=== PATIENT | female | born 1965 | race Caucasian/White ===

== ENCOUNTER 2016-09-18 13:24 | Observation (INO) | payer OTHER ==
[2016-09-18] MEDS ORDERED: ASPIRIN 81 MG CHEW PO STA (14:01)
[2016-09-18] MEDS ORDERED: NITROGLYCERIN OINT 1 INCH/GM PACKET TOPICAL STA (14:01)
--- NOTE | 2016-09-18 14:04 | ED ---
General Adult HPI - General Chief complaint: Chest Pain Stated complaint: Chest and shoulder discomfort Time Seen by Provider: 09/18/16 13:35 Source: patient, RN notes reviewed Mode of arrival: ambulatory Limitations: no limitations - History of Present Illness Initial comments: This is a 51-year-old female who presents emergency Department with a past history significant for smoking a family history positive for heart disease. Patient comes in today because yesterday she started having some left-sided back pain with some minimal ache in the chest today the back pain seems to have improved but the achiness was much worse since she woke up and patient states currently he is almost nonexistent. Patient denies any radiation of that chest pain anywhere. Patient denies any difficulty breathing shortness of breath patient denies any diaphoresis per patient denies any nausea. Patient denies any recent fever chills or cough. Patient states she feels great and just wanted to make sure she wasn't coming down with some pleurisy and that is why she came to the emergency department. Patient denies headache patient denies numbness weakness patient denies any lightheadedness dizziness or near syncopal episode. Patient denies any sore throat or runny nose or any other upper respiratory symptoms. Patient states nothing makes the pain better or worse it' s just slowly faded away after she took Tylenol. - Related Data Home Medications Medication Instructions Recorded Confirmed Acetaminophen Tab [Tylenol Tab] 1,000 mg PO Q6HR PRN 09/18/16 09/18/16 Allergies Allergy/AdvReac Type Severity Reaction Status Date / Time No Known Allergies Allergy Verified 09/18/16 14:23 Review of Systems ROS Statement: Those systems with pertinent positive or pertinent negative responses have been documented in the HPI. ROS Other: All systems not noted in ROS Statement are negative. Past Medical History Past Medical History: Cancer, GERD/Reflux Additional Past Medical History / Comment(s): VERTIGO. HX EARLY STAGES CERVICAL CA- WITH FREEZING PROCEDURE DONE IN 1989 History of Any Multi-Drug Resistant Organisms: None Reported Past Surgical History: Appendectomy, Cholecystectomy, Tubal Ligation Additional Past Surgical History / Comment(s): EGD/COLONOSCOPY Past Anesthesia/Blood Transfusion Reactions: No Reported Reaction Additional Past Anesthesia/Blood Transfusion Reaction / Comment(s): VERTIGO Past Psychological History: No Psychological Hx Reported Smoking Status: Current every day smoker Past Alcohol Use History: Occasional Additional Past Alcohol Use History / Comment(s): WAS A 1/2 PPD SMOKER- NOW 1 PACK EVERY 3 DAYS- TRYING TO QUIT SMOKED OFF & ON SINCE 1978 Past Drug Use History: None Reported - Past Family History Mother Family Medical History: Cancer Additional Family Medical History / Comment(s): KIDNEY CA Sister(s) Family Medical History: Cancer Additional Family Medical History / Comment(s): OVARIAN CA Brother(s) Family Medical History: Cancer Additional Family Medical History / Comment(s): PROSTATE General Exam - General Exam Comments Initial Comments: GENERAL: Patient is well-developed and well-nourished. Patient is nontoxic and well- hydrated and is in no acute distress. ENT: Neck is soft and supple. No significant lymphadenopathy is noted. Oropharynx is clear. Moist mucous membranes. Neck has full range of motion without eliciting any pain. EYES: The sclera were anicteric and conjunctiva were pink and moist. Extraocular movements were intact and pupils were equal round and reactive to light. Eyelids were unremarkable. PULMONARY: Unlabored respirations. Good breath sounds bilaterally. No audible rales rhonchi or wheezing was noted. CARDIOVASCULAR: There is a regular rate and rhythm without any murmurs gallops or rubs. ABDOMEN: Soft and nontender with normal bowel sounds. No palpable organomegaly was noted. There is no palpable pulsatile mass. SKIN: Skin is clear with no lesions or rashes and otherwise unremarkable. NEUROLOGIC: Patient is alert and oriented x3. Cranial nerves II through XII are grossly intact. Motor and sensory are also intact. Normal speech, volume and content. Symmetrical smile. MUSCULOSKELETAL: Normal extremities with adequate strength and full range of motion. No lower extremity swelling or edema. No calf tenderness. LYMPHATICS: No significant lymphadenopathy is noted PSYCHIATRIC: Normal psychiatric evaluation. Limitations: no limitations Course Vital Signs 09/18/16 09/18/16 13:29 14:40 Temperature 97.8 F Pulse Rate 70 71 Respiratory 18 17 Rate Blood Pressure 145/81 138/79 O2 Sat by Pulse 100 98 Oximetry Medical Decision Making - Medical Decision Making EKG shows normal sinus rhythm at 64 bpm NM interval is 120 QRS is 94 QT interval is 412 QTC is 425. Patient's chest pain had completely resolved while in the emergency department. But because of her smoking history age and family history I felt so the patient should stay because she does not normally have chest pain. She was in agreement I spoke to her, she agreed to accept the patient I wrote admitting orders and consult cardiology I heparinized because I considered this unstable angina pectoris that she has never had pain similar to this in the past. - Lab Data Result diagrams: 09/18/16 13:57 09/18/16 13:57 Lab Results 09/18/16 09/18/16 09/18/16 Range/Units 13:57 13:57 13:57 WBC 6.9 (3.8-10.6) k/uL RBC 5.11 (3.80-5.40) m/uL Hgb 15.3 (11.4-16.0) gm/dL Hct 46.2 H (34.0-46.0) % MCV 90.5 (80.0-100.0) fL MCH 30.0 (25.0-35.0) pg MCHC 33.2 (31.0-37.0) g/dL RDW 12.8 (11.5-15.5) % Plt Count 253 (150-450) k/uL Neutrophils % 64 % Lymphocytes % 29 % Monocytes % 4 % Eosinophils % 2 % Basophils % 1 % Neutrophils # 4.4 (1.3-7.7) k/uL Lymphocytes # 2.0 (1.0-4.8) k/uL Monocytes # 0.3 (0-1.0) k/uL Eosinophils # 0.1 (0-0.7) k/uL Basophils # 0.1 (0-0.2) k/uL PT (9.0-12.0) sec INR (<1.1) APTT (22.0-30.0) sec Sodium 143 (137-145) mmol/L Potassium 4.4 (3.5-5.1) mmol/L Chloride 104 (98-107) mmol/L Carbon Dioxide 28 (22-30) mmol/L Anion Gap 11 mmol/L BUN 13 (7-17) mg/dL Creatinine 0.79 (0.52-1.04) mg/dL Est GFR (MDRD) Af Amer >60 (>60 ml/min/1.73 sqM) Est GFR (MDRD) Non-Af >60 (>60 ml/min/1.73 sqM) Glucose 108 H (74-99) mg/dL Calcium 9.4 (8.4-10.2) mg/dL Magnesium 1.7 (1.6-2.3) mg/dL Total Bilirubin 0.5 (0.2-1.3) mg/dL AST 23 (14-36) U/L ALT 36 (9-52) U/L Alkaline Phosphatase 90 (38-126) U/L Total Creatine Kinase 48 (30-135) U/L CK-MB (CK-2) <0.2 (0.0-2.4) ng/mL CK-MB (CK-2) Rel Index Troponin I <0.012 (0.000-0.034) ng/mL Total Protein 7.6 (6.3-8.2) g/dL Albumin 4.3 (3.5-5.0) g/dL 09/18/16 Range/Units 13:57 WBC (3.8-10.6) k/uL RBC (3.80-5.40) m/uL Hgb (11.4-16.0) gm/dL Hct (34.0-46.0) % MCV (80.0-100.0) fL MCH (25.0-35.0) pg MCHC (31.0-37.0) g/dL RDW (11.5-15.5) % Plt Count (150-450) k/uL Neutrophils % % Lymphocytes % % Monocytes % % Eosinophils % % Basophils % % Neutrophils # (1.3-7.7) k/uL Lymphocytes # (1.0-4.8) k/uL Monocytes # (0-1.0) k/uL Eosinophils # (0-0.7) k/uL Basophils # (0-0.2) k/uL PT 10.5 (9.0-12.0) sec INR 1.0 (<1.1) APTT 25.3 (22.0-30.0) sec Sodium (137-145) mmol/L Potassium (3.5-5.1) mmol/L Chloride (98-107) mmol/L Carbon Dioxide (22-30) mmol/L Anion Gap mmol/L BUN (7-17) mg/dL Creatinine (0.52-1.04) mg/dL Est GFR (MDRD) Af Amer (>60 ml/min/1.73 sqM) Est GFR (MDRD) Non-Af (>60 ml/min/1.73 sqM) Glucose (74-99) mg/dL Calcium (8.4-10.2) mg/dL Magnesium (1.6-2.3) mg/dL Total Bilirubin (0.2-1.3) mg/dL AST (14-36) U/L ALT (9-52) U/L Alkaline Phosphatase (38-126) U/L Total Creatine Kinase (30-135) U/L CK-MB (CK-2) (0.0-2.4) ng/mL CK-MB (CK-2) Rel Index Troponin I (0.000-0.034) ng/mL Total Protein (6.3-8.2) g/dL Albumin (3.5-5.0) g/dL Critical Care Time Critical Care Time: Yes Total Critical Care Time: 35 Disposition Clinical Impression: Unstable angina pectoris Disposition: ADMITTED IP TO THIS [facility] Time of Disposition: 15:39
[2016-09-18 14:15] LABS: Basophils # (A) 0.1 k/uL (0-0.2); Basophils % (A) 1 %; CH 30.4; CHCM 33.8; Eosinophils # (A) 0.1 k/uL (0-0.7); Eosinophils % (A) 2 %; HCT 46.2 % (34.0-46.0); HDW 2.34; HGB 15.3 gm/dL (11.4-16.0); Luc # (Auto) 0.06; Luc % (Auto) 1; Lymphocytes % (A) 29 %; MCHC 33.2 g/dL (31.0-37.0); MCV 90.5 fL (80.0-100.0); Mean Platelet Volume 7.1; Monocytes # (A) 0.3 k/uL (0-1.0); Monocytes % (A) 4 %; Neutrophils # (A) 4.4 k/uL (1.3-7.7); Neutrophils % (A) 64 %; RBC 5.11 m/uL (3.80-5.40); RDW 12.8 % (11.5-15.5); WBC 6.9 k/uL (3.8-10.6); WBC (Perox) 6.63
[2016-09-18 14:26] LABS: Partial Thromboplastin Time 25.3 sec (22.0-30.0); Prothrombin Time 10.5 sec (9.0-12.0)
[2016-09-18 14:27] LABS: ALT 36 U/L (9-52); AST 23 U/L (14-36); Alkaline Phosphatase 90 U/L (38-126); Anion Gap 11 mmol/L; Blood Urea Nitrogen 13 mg/dL (7-17); Calcium 9.4 mg/dL (8.4-10.2); Carbon Dioxide 28 mmol/L (22-30); Chloride 104 mmol/L (98-107); Glucose 108 mg/dL (74-99); Magnesium 1.7 mg/dL (1.6-2.3); Non-African American GFR(MDRD) >60 (>60 ml/min/1.73 sqM); Potassium 4.4 mmol/L (3.5-5.1); Sodium 143 mmol/L (137-145); Total Bilirubin 0.5 mg/dL (0.2-1.3); Total Protein 7.6 g/dL (6.3-8.2)
[2016-09-18 14:38] LABS: Creatine Kinase 48 U/L (30-135)
--- NOTE | 2016-09-18 14:49 | XR ---
EXAMINATION TYPE: XR chest 2V DATE OF EXAM: 09/18/2016 2:32 PM COMPARISON: Prior chest x-ray August 2013 HISTORY: Chest pain TECHNIQUE: Frontal and lateral views of the chest are obtained. FINDINGS: There is no focal air space opacity, pleural effusion, or pneumothorax seen. The cardiac silhouette size is within normal limits. Prominent lung volume may be indicative of underlying COPD. The osseous structures are intact. IMPRESSION: No acute cardiopulmonary process.
[2016-09-18 14:50] LABS: Creatine Kinase MB <0.2 ng/mL (0.0-2.4); Troponin I <0.012 ng/mL (0.000-0.034)
[2016-09-18] MEDS ORDERED: HEPARIN SODIUM,PORCINE 5,000 UNIT/ML 1 ML VIAL IV ONE (15:37)
[2016-09-18] MEDS ORDERED: NITROGLYCERIN SL TABS 0.4 MG TAB SUBLINGUAL PRN (15:42)
[2016-09-18] MEDS ORDERED: HEPARIN SODIUM,PORCINE/D5W PMX 25,000 UNIT in DEXTROSE/WATER 1 500ML.BAG IV SCH (15:45)
[2016-09-18 20:31] LABS: Creatine Kinase 43 U/L (30-135)
[2016-09-18 20:44] LABS: Creatine Kinase MB <0.2 ng/mL (0.0-2.4); Troponin I <0.012 ng/mL (0.000-0.034)
[2016-09-18] MEDS: NICOTINE 14MG/24HR PATCH TRANSDERM SCH (22:48)
[2016-09-19 01:23] LABS: Creatine Kinase 41 U/L (30-135)
[2016-09-19 01:36] LABS: Creatine Kinase MB <0.2 ng/mL (0.0-2.4); Troponin I <0.012 ng/mL (0.000-0.034)
[2016-09-19 05:31] LABS: Cholesterol 256 mg/dL (<200); HDL Cholesterol 49 mg/dL (40-60); Triglycerides 221 mg/dL (<150)
[2016-09-19] MEDS: NITROGLYCERIN OINT 1 INCH/GM PACKET TOPICAL SCH ×3 (08:03→17:45)
[2016-09-19] MEDS ORDERED: HEPARIN SODIUM,PORCINE 5,000 UNIT/ML 1 ML VIAL IV STA (08:08)
[2016-09-19] MEDS: NICOTINE 14MG/24HR PATCH TRANSDERM SCH (09:04)
[2016-09-19] MEDS: ASPIRIN 325 MG TAB PO SCH (09:08)
--- NOTE | 2016-09-19 12:34 | HP ---
DATE OF ADMISSION: 09/18/16 PRESENTING COMPLAINT: Chest pain. HISTORY OF PRESENTING COMPLAINT: A pleasant 51 year old patient of Dr. Camacho, rather good health. The night before started up with left flank pain and was present in the morning. The patient started having left chest discomfort. No short of breath or dizziness, no radiation, lasted for some time, has decided to come in and is worried about a cardiac event. The patient was put on IV Heparin and Nitroglycerin Paste and she is feeling better. REVIEW OF SYSTEMS: CONSTITUTIONAL: Tired. HEENT: None. RESPIRATORY: None. CARDIOVASCULAR: As above. GASTROINTESTINAL: Occasional gastrointestinal reflux disease. MUSCULOSKELETAL: None. DERMATOLOGIC: None. HEMATOLOGIC: None. LYMPHATIC: None. PSYCHIATRY: None. NEUROLOGICAL: None. PAST HISTORY: Gastrointestinal reflux disease, occasional vertigo, early stage cervical cancer, freezing procedure. PAST SURGICAL HISTORY: Appendectomy, cholecystectomy, tubal ligation, EGD, colonoscopy. SOCIAL HISTORY: Smokes about 1/2 pack a day. . FAMILY HISTORY: From father of coronary artery disease, kidney cancer. HOME MEDICATIONS: Tylenol. ALLERGIES: None. PHYSICAL EXAMINATION: On examination, afebrile, pulse 70, respirations 16, blood pressure 109/49, pulse oximetry 98% on room air. GENERAL APPEARANCE: Well built, BMI of 31. Lying in bed, comfortable. EYES: Sclerae clear, conjunctivae normal. HEENT: Oral cavity normal. . NECK: JVD not raised. Masses not palpable. RESPIRATORY: Effort normal. Lungs are clear. CARDIOVASCULAR: First and second sounds normal. No edema. ABDOMEN: Soft, nontender. Liver and spleen not palpable. LYMPHATIC: No lymph nodes palpable in neck or axillae. PSYCHIATRY: Alert and oriented x3. Mood and affect normal. NEUROLOGICAL: Pupils clear, cranial nerves grossly intact. Power and sensation grossly intact. INVESTIGATIONS: White count 6.9, hemoglobin 14.4 BUN and creatinine are normal. Troponin were negative. EKG normal sinus rhythm. ASSESSMENT: 1. Left anterior chest wall pain, somewhat atypical for cardiac but the patient's risk factors include smoking, her age, and some positive family history. The patient's Troponins are negative, EKGs are negative. 2. Obesity, Body mass index of 30.2. 3. Chronic nicotine dependence. Patient is a heavy smoker. PLAN: Serial cardiac enzymes. Please put on IV heparin and aspirin. Cardiology was consulted. The patient may need outpatient stress test. We will await cardiology opinion. Patient counseled against smoking.
[2016-09-19 14:24] VITALS: RESP 16; TEMP 98
[2016-09-19 18:17] VITALS: BP 130/81; PULSE 56
--- NOTE | 2016-09-20 22:13 | DS ---
DATE OF ADMISSION: 09/18/2016 DATE OF DISCHARGE: 09/19/2016 FINAL DIAGNOSES: 1. Left anterior chest wall pain. 2. Obesity, body mass index of 30.2. 3. Chronic nicotine dependence. Patient is a cigarette smoker. HOSPITAL COURSE: This patient admitted with left anterior chest wall pain. Patient's troponins were negative. EKG did not show any ischemic changes. Dr. Salguero was consulted. Nurse was called to discharge the patient. I do not have her dictation up in the computer currently. DISCHARGE MEDICATIONS: None per Cardiology. Follow up with Dr. Camacho in 2 days. Follow up with Dr. Salguero per his recommendation. On exam, lungs are clear. CARDIOVASCULAR: First and second heart sounds are normal.
== END 2016-09-19 18:18 | disposition home or self-care (01) ==
LOC: EC 13:24 → 3OBS 15:42
PROVIDERS: ADMIT Hospitalist; ATTEND Hospitalist
DX: R07.89 Other chest pain (principal); E66.9 Obesity, unspecified; Z68.30 Body mass index [BMI] 30.0-30.9, adult; F17.210 Nicotine dependence, cigarettes, uncomplicated; M54.9 Dorsalgia, unspecified; Z85.41 Personal history of malignant neoplasm of cervix uteri; Z80.51 Family history of malignant neoplasm of kidney; Z80.41 Family history of malignant neoplasm of ovary; Z82.49 Family history of ischemic heart disease and other diseases of the circulatory system
CPT/HCPCS: 99291 ×2; 96365 ×2; 96366 ×26; 96376 ×4; 36415; 93005 ×2; 80061; 80053; 82550 ×2; 82553 ×2; 83735; 84484 ×2; 85025; 85610; 85730 ×2; 71020; G0378 ×2; S4990; J1644 ×3

== ENCOUNTER 2019-08-31 11:03 | Observation (INO) | payer OTHER ==
--- NOTE | 2019-08-31 11:51 | ED ---
Chest Pain HPI - General Chief Complaint: Chest Pain Stated Complaint: chest pain Time Seen by Provider: 08/31/19 11:15 Source: patient Mode of arrival: wheelchair Limitations: no limitations - History of Present Illness Initial Comments: The patient is a 53-year-old female with history of cervical cancer in remission who presents emergency room with reported chest pain and shortness of breath. States that she has been suffering from chest heaviness since last night. It has been intermittent without any exacerbating factors. No history of previous cardiac disease. Does state that she has associated shortness of breath. Mild cough without sputum production. No fevers or chills. Denies hemoptysis. No previous history of COPD or asthma. Patient does smoke. No history of cardiac disease. No exacerbation of her symptoms with food intake. Denies any changes in her bowel or bladder habits. No nausea or vomiting. There are no other all eviating, precipitating or modifying factors - Related Data Home Medications Medication Instructions Recorded Confirmed Acetaminophen Tab [Tylenol] 1,000 mg PO Q6HR PRN 09/18/16 08/31/19 Allergies Allergy/AdvReac Type Severity Reaction Status Date / Time No Known Allergies Allergy Verified 08/31/19 14:06 Review of Systems ROS Statement: Those systems with pertinent positive or pertinent negative responses have been documented in the HPI. ROS Other: All systems not noted in ROS Statement are negative. EKG Findings - EKG Comments: EKG Findings:: EKG demonstrates a sinus bradycardia with a ventricular rate of 52. GA interval 1:30. Stress 102. QTC of 435. There is a T-wave inversion in lead 3. No acute ST segment elevations Past Medical History Past Medical History: Cancer, GERD/Reflux Additional Past Medical History / Comment(s): VERTIGO, HX EARLY STAGES CERVICAL CA- WITH FREEZING PROCEDURE DONE IN 1989 History of Any Multi-Drug Resistant Organisms: None Reported Past Surgical History: Appendectomy, Cholecystectomy, Tubal Ligation Additional Past Surgical History / Comment(s): EGD/COLONOSCOPY Past Anesthesia/Blood Transfusion Reactions: No Reported Reaction Additional Past Anesthesia/Blood Transfusion Reaction / Comment(s): VERTIGO Past Psychological History: No Psychological Hx Reported Smoking Status: Current every day smoker Past Alcohol Use History: None Reported Past Drug Use History: None Reported - Past Family History Mother Family Medical History: Cancer Additional Family Medical History / Comment(s): KIDNEY CA Sister(s) Family Medical History: Cancer Additional Family Medical History / Comment(s): OVARIAN CA Brother(s) Family Medical History: Cancer Additional Family Medical History / Comment(s): PROSTATE Father Family Medical History: Coronary Artery Disease (CAD), Myocardial Infarction (NV) Additional Family Medical History / Comment(s): Father had a NV -pt does not recall at what age. He had CABG. Coronary disease runs on pt's father's side of the family. General Exam Limitations: no limitations General appearance: alert, in no apparent distress Head exam: Present: atraumatic, normocephalic, normal inspection Eye exam: Present: normal appearance, PERRL, EOMI. Absent: scleral icterus, conjunctival injection, periorbital swelling ENT exam: Present: normal exam, mucous membranes moist Neck exam: Present: normal inspection. Absent: tenderness, meningismus, lymphadenopathy Respiratory exam: Present: normal lung sounds bilaterally. Absent: respiratory distress, wheezes, rales, rhonchi, stridor Cardiovascular Exam: Present: regular rate, normal rhythm, normal heart sounds. Absent: systolic murmur, diastolic murmur, rubs, gallop, clicks GI/Abdominal exam: Present: soft, normal bowel sounds. Absent: distended, tenderness, guarding, rebound, rigid Extremities exam: Present: normal inspection, full ROM, normal capillary refill. Absent: tenderness, pedal edema, joint swelling, calf tenderness Back exam: Present: normal inspection Neurological exam: Present: alert, oriented X3, CN II-XII intact Psychiatric exam: Present: normal affect, normal mood Skin exam: Present: warm, dry, intact, normal color. Absent: rash Course Vital Signs 08/31/19 08/31/19 08/31/19 11:11 11:24 12:13 Temperature 98.2 F Pulse Rate 58 L 84 Pulse Rate [ 51 L Apical] Respiratory 18 16 Rate Blood Pressure 187/81 178/89 O2 Sat by Pulse 100 99 Oximetry 08/31/19 13:47 Temperature Pulse Rate 47 L Pulse Rate [ Apical] Respiratory 16 Rate Blood Pressure 166/89 O2 Sat by Pulse 96 Oximetry Chest Pain MDM - MDM Upon arrival the patient was placed into room 2. A thorough history and physical exam was performed. A 12-lead EKG was performed which demonstrates no acute ST segment elevations. Laboratory studies were conducted which were essentially unremarkable. First troponin is negative. Patient was sent for a chest x-ray which demonstrates mild hyperinflation. No acute cardiopulmonary process. I discussed the results with the patient. Because of her history of smoking, family history of cardiac disease, I did recommend hospital admission. The patient did agree to this. I called and discussed the case with Dr. Deleon who accepted admission. The patient was then transported to the floor in stable condition Disposition Clinical Impression: Chest pain Disposition: ADMITTED IP TO THIS HOSP Condition: Stable Is patient prescribed a controlled substance at d/c from ED?: No Decision to Admit Reason: Admit from EC Decision Date: 08/31/19 Decision Time: 13:21
[2019-08-31 12:01] LABS: Basophils % (A) 0 %; Eosinophils # (A) 0.1 k/uL (0-0.7); Eosinophils % (A) 2 %; HCT 45.3 % (34.0-46.0); HGB 15.1 gm/dL (11.4-16.0); Lymphocytes # (A) 1.8 k/uL (1.0-4.8); Lymphocytes % (A) 25 %; MCH 30.3 pg (25.0-35.0); MCHC 33.3 g/dL (31.0-37.0); Mean Platelet Volume 6.9; Monocytes # (A) 0.2 k/uL (0-1.0); Monocytes % (A) 3 %; Neutrophils # (A) 4.8 k/uL (1.3-7.7); Neutrophils % (A) 68 %; Platelet Count 307 k/uL (150-450); RBC 4.98 m/uL (3.80-5.40); RDW 12.7 % (11.5-15.5)
[2019-08-31 12:11] LABS: INR 0.9 (<1.2); Partial Thromboplastin Time 26.6 sec (22.0-30.0); Prothrombin Time 9.9 sec (9.0-12.0)
[2019-08-31 12:16] LABS: Potassium 4.1 mmol/L (3.5-5.1)
--- NOTE | 2019-08-31 12:16 | XR ---
EXAMINATION TYPE: XR chest 2V DATE OF EXAM: 08/31/2019 COMPARISON: 09/18/2016 HISTORY: 53-year-old female with chest pain TECHNIQUE: PA and lateral views FINDINGS: The cardiomediastinal silhouette, aorta, and pulmonary vasculature are within normal limits. Mild hyp erinflation. Lungs and pleural spaces are clear. IMPRESSION: Mild hyperinflation may relate to depth of inspiration or underlying emphysema. Clinically correlate. No acute cardiopulmonary process.
[2019-08-31 12:18] LABS: ALT 14 U/L (4-34); AST 22 U/L (14-36); African American GFR (CKD) >90 (>60 ml/min/1.73 sqM); Albumin 4.3 g/dL (3.5-5.0); Alkaline Phosphatase 99 U/L (38-126); Anion Gap 9 mmol/L; Blood Urea Nitrogen 12 mg/dL (7-17); Calcium 9.7 mg/dL (8.4-10.2); Carbon Dioxide 24 mmol/L (22-30); Chloride 106 mmol/L (98-107); Glucose 103 mg/dL (74-99); Non-African American GFR(CKD) >90 (>60 ml/min/1.73 sqM); Sodium 139 mmol/L (137-145); Total Bilirubin 0.8 mg/dL (0.2-1.3); Total Protein 7.5 g/dL (6.3-8.2)
[2019-08-31] MEDS ORDERED: NALOXONE 0.4 MG/ML 1 ML VIAL IV PRN (13:22)
[2019-08-31] MEDS ORDERED: HYDROcodone/APAP 5-325MG 1 EACH TAB PO PRN (20:53)
[2019-08-31] MEDS ORDERED: TEMAZEPAM 15 MG CAP PO PRN (20:53)
[2019-08-31] MEDS ORDERED: ALPRAZolam 0.25 MG TAB PO PRN (20:53)
--- NOTE | 2019-08-31 22:07 | HP ---
HISTORY AND PHYSICAL DATE OF SERVICE: 08/31/2019 CHIEF COMPLAINT: Chest pain. HISTORY OF PRESENT ILLNESS: This 53-year-old woman with a past medical history of multiple medical problems including GERD, history of vertigo, history of cervical cancer, history appendectomy and cholecystectomy, not being followed by any primary physician in the outpatient setting was complaining of chest pain. The pain was felt in the anterior part of chest, most likely heaviness, intermittent without an exacerbation, without radiation. Patient came to [facility] and admitted for further evaluation and treatment. The initial troponins are negative. EKG did not show acute abnormality. There is no history of fever, rigors. No history of headache, loss of consciousness, seizures at this time. PAST MEDICAL HISTORY: History of GERD, history of vertigo, history of appendectomy, cholecystectomy. HOME MEDICATIONS: Tylenol p.r.n. ALLERGIES: None. FAMILY HISTORY: History of kidney cancer in the family. SOCIAL HISTORY: History of smoking. Occasional alcohol intake. REVIEW OF SYSTEMS: ENT: No history of diminished hearing or vision. CARDIOVASCULAR: As mentioned earlier. RESPIRATORY: As mentioned earlier. GI: No nausea, vomiting, or diarrhea. : No dysuria. NERVOUS: No numbness or weakness. ALLERGY/IMMUNOLOGY: No asthma or hayfever. MUSCULOSKELETAL: As mentioned earlier. HEMATOLOGY/ONCOLOGY: Negative. ENDOCRINE: No history of diabetes or hypothyroidism. SKIN: Negative. CONSTITUTIONAL: As mentioned earlier. PSYCHIATRY As mentioned earlier. PHYSICAL EXAMINATION: Alert and oriented x3. Pulse is 51, blood pressure 158/77, respirations 18, temperature 97.4, pulse ox 99% on room air. HEENT: Conjunctivae normal. Oral mucosa moist. NECK: No jugular venous distention. No lymph node enlargement. CARDIOVASCULAR: S1, S2. RESPIRATORY: Diminished breath sounds at the bases. No rhonchi, no crackles. ABDOMEN: Soft, nontender. LEGS: No edema, no swelling. NERVOUS SYSTEM: Higher functions mentioned earlier. Moves all four limbs. No focal deficits. LYMPHATICS: No lymph node in neck or axilla. SKIN: No rash. JOINTS: No active deforming arthropathy. LABS: CBC within normal limits. Glucose 103. ASSESSMENT: 1. Chest pain for evaluation, rule out coronary artery disease, unstable angina. 2. Hypertension, labile. 3. History of vertigo. 4. History of cervical cancer. 5. History of cholecystectomy. 6. History of appendectomy. 7. History of nicotine dependence, continued, ongoing. RECOMMENDATIONS AND DISCUSSION: In this 53-year-old woman who presented with multiple medical issues, at this time I recommend to continue current medications, rule out myocardial infarction, Cardiology consultation, possible stress test. Guarded prognosis because of multiple complex medical issues. I would also recommend a D-dimer and if the D-dimer is positive, CT angiogram. Otherwise, I would recommend the patient follow up with primary physician closely after discharge. Further recommendations to follow. MMODL / IJN: [id number] /
[2019-09-01 06:04] LABS: Basophils % (A) 1 %; Eosinophils # (A) 0.2 k/uL (0-0.7); Eosinophils % (A) 3 %; HCT 45.2 % (34.0-46.0); HGB 14.9 gm/dL (11.4-16.0); Lymphocytes # (A) 2.4 k/uL (1.0-4.8); Lymphocytes % (A) 35 %; MCH 30.4 pg (25.0-35.0); MCHC 32.9 g/dL (31.0-37.0); MCV 92.6 fL (80.0-100.0); Monocytes # (A) 0.3 k/uL (0-1.0); Monocytes % (A) 4 %; Neutrophils # (A) 3.9 k/uL (1.3-7.7); Neutrophils % (A) 56 %; Platelet Count 284 k/uL (150-450); RBC 4.88 m/uL (3.80-5.40); RDW 12.9 % (11.5-15.5); WBC 6.9 k/uL (3.8-10.6)
[2019-09-01 06:14] LABS: African American GFR (CKD) >90 (>60 ml/min/1.73 sqM); Anion Gap 5 mmol/L; Blood Urea Nitrogen 19 mg/dL (7-17); Calcium 9.4 mg/dL (8.4-10.2); Carbon Dioxide 26 mmol/L (22-30); Chloride 108 mmol/L (98-107); Glucose 104 mg/dL (74-99); Non-African American GFR(CKD) >90 (>60 ml/min/1.73 sqM); Potassium 4.5 mmol/L (3.5-5.1); Sodium 139 mmol/L (137-145)
[2019-09-01 07:00] VITALS: BP 148/78; PULSE 53; RESP 18; TEMP 97.4
[2019-09-01] MEDS ORDERED: PANTOPRAZOLE 40 MG TABLET PO SCH (07:30)
--- NOTE | 2019-09-01 11:05 | CONS ---
CONSULTATION Bette is a 53-year-old lady with smoking and family history of premature coronary artery disease as coronary risk factors, who presented to hospital with chest pain. She describes it as a sharp precordial pain that came on while she was getting up from a sitting position, mild intensity, lasted for several minutes, gradually subsided on its own. Subsequently, she felt dizzy, which was her main concern for which she came in. At the time of my evaluation, both the dizziness and the chest pain have resolved. She is doing well and is eager to go home. The patient states that she has to attend a and has to go home. EKG does not reveal acute ischemic changes. Cardiac enzymes have been negative. The patient is a smoker. I advised her to quit smoking. I told the patient that she needs a stress test and echocardiogram for further evaluation of symptoms. She promises me that she will get this done in the outpatient setting. PAST MEDICAL HISTORY: Negative for hypertension, diabetes, dyslipidemia. MEDICATIONS: None. ALLERGIES: None. FAMILY HISTORY: Significant for coronary artery disease in her father. SOCIAL HISTORY: Significant for smoking. There is no history of EtOH abuse or drug abuse. REVIEW OF SYSTEMS: HEENT is unremarkable. Cardiac as described above. Respiratory as described above. GI negative. GENITOURINARY negative. Allergy/Immunology: Negative. SKIN: Negative. MUSCULOSKELETAL: Significant for arthritis. PSYCHOSOCIAL negative. ENDOCRINE: Negative. CONSTITUTIONAL: Negative. ONCOLOGICAL negative. Rest of the system review is not relevant. PHYSICAL EXAMINATION: On exam, comfortable at rest. Vital signs are stable. There is no jugular venous distention. Carotid upstroke is normal. There is no bruit. Chest exam reveals good air entry bilaterally. Heart exam reveals first and second heart sounds. No gallop. Abdomen is soft, nontender. Exam of extremities did not reveal edema. Peripheral pulses are felt. The patient has ambulated in the hallways without any problems. EKG does not reveal acute ischemic changes. Cardiac enzymes have been negative. D-dimer is normal. Hemoglobin is normal. Potassium is 4.5. Creatinine is 0.6. ASSESSMENT: 1. Precordial chest pain. 2. Smoking. PLAN: Patient will undergo an outpatient stress test and echocardiogram. She is stable at the moment for discharge. MMODL / IJN: [id number] /
--- NOTE | 2019-09-02 09:29 | DS ---
DISCHARGE SUMMARY DATE OF SERVICE: 09/01/2019 FINAL DIAGNOSES: 1. Chest pain, myocardial infarction ruled out. Rule out coronary artery disease. 2. Hypertension, labile. 3. History of vertigo. 4. History of cervical cancer. 5. History of cholecystectomy. 6. History of appendectomy. 7. Remote history of nicotine dependence, continued ongoing. DISCHARGE DISPOSITION: The patient will be discharged in A stable condition with guarded prognosis. HISTORY OF PRESENT ILLNESS: This is a 53-year-old woman with a past medical of multiple medical problems was admitted with chest pain, myocardial infarction ruled out. Cardiology saw the patient, recommend outpatient followup and possible stress test. On exam, vitals are stable. CARDIOVASCULAR SYSTEM: S1, S2. ABDOMEN: Soft. NERVOUS SYSTEM: No focal motor or sensory deficits. DISCHARGE ADVICE: 1. discharge diet IS cardiac diet. 2. Activity limited until followup. 3. Follow up with the primary physician in 1-2 days. MEDICATIONS ARE: Tylenol p.r.n. Follow with Cardiology as recommended. Outpatient stress test per Cardiology. Once again the patient will be discharged in stable condition with guarded prognosis. MMODL / IJN: [id number] /
== END 2019-09-01 13:12 | disposition home or self-care (01) ==
LOC: EC 11:03 → 1SOBS 13:25
PROVIDERS: ADMIT Internal Medicine; ATTEND Internal Medicine
DX: R07.2 Precordial pain (principal); R09.89 Other specified symptoms and signs involving the circulatory and respiratory systems; R00.1 Bradycardia, unspecified; K21.9 Gastro-esophageal reflux disease without esophagitis; F17.200 Nicotine dependence, unspecified, uncomplicated; Z85.41 Personal history of malignant neoplasm of cervix uteri; Z90.49 Acquired absence of other specified parts of digestive tract; Z80.51 Family history of malignant neoplasm of kidney; Z80.41 Family history of malignant neoplasm of ovary; Z80.42 Family history of malignant neoplasm of prostate; Z82.49 Family history of ischemic heart disease and other diseases of the circulatory system
CPT/HCPCS: 93005 ×2; 99285; 36415; 85379; 80053; 80048; 83690; 83735; 84484; 85025 ×2; 85610; 85730; 71046; G0378 ×2

== ENCOUNTER 2021-02-20 20:53 | Emergency (ER) | payer OTHER ==
[2021-02-20 20:58] VITALS: TEMP 71
[2021-02-20] MEDS ORDERED: MORPHINE SULFATE 4 MG/ML SYRINGE IVP STA (21:31)
[2021-02-20] MEDS ORDERED: MORPHINE SULFATE 4 MG/ML SYRINGE IM STA (21:41)
--- NOTE | 2021-02-20 22:24 | XR ---
EXAMINATION TYPE: XR shoulder complete RT DATE OF EXAM: 02/20/2021 COMPARISON: NONE HISTORY: Fall. Pain. TECHNIQUE: 3 views FINDINGS: There is comminuted humeral neck fracture with impaction. There is no dislocation. The AC j oint is intact. Scapula is intact. IMPRESSION: Comminuted impacted humeral neck fracture. Fracture line extends through the articular lu rface of the humeral head.
[2021-02-20] MEDS ORDERED: diphenhydrAMINE 50 MG/ML 1 ML VIAL IM STA (22:28)
[2021-02-20 22:33] VITALS: RESP 16
--- NOTE | 2021-02-20 23:03 | ED ---
Upper Extremity HPI - General Source: patient, RN notes reviewed Mode of arrival: ambulatory Limitations: no limitations <Jeb Crockett - Last Filed: 02/20/21 22:28> <Rey Pulliam - Last Filed: 02/21/21 00:04> - General Chief Complaint: Extremity Injury, Upper Stated Complaint: R shoulder pain Time Seen by Provider: 02/20/21 21:03 - History of Present Illness Initial Comments: Patient is a 55-year-old female that presents to emergency department complaining of right shoulder pain. She notes that she has chronic issues with the right shoulder but today she tripped over her dog and tried catching herself and injured her shoulder. She notes that it was painful to move. There was no obvious deformity on exam. She notes that she still did have good neurophysiologist strength and feeling in her right upper extremity. She noted that her pain was pretty significant. She notes that she is only take any medications for pain at home or in her past. She was a well-appearing well-hydrated 55-year-old female in moderate amount of pain while sitting up in bed during exam and interview. She denied any chest pain short of breath headache nausea vomiting diarrhea constipation fever fatigue chills (Jeb Crockett) - Related Data Home Medications Medication Instructions Recorded Confirmed Acetaminophen Tab [Tylenol] 1,000 mg PO Q6HR PRN 09/18/16 08/31/19 Allergies Allergy/AdvReac Type Severity Reaction Status Date / Time No Known Allergies Allergy Verified 02/20/21 20:54 Review of Systems ROS Other: All systems not noted in ROS Statement are negative. <Jeb Crockett - Last Filed: 02/20/21 22:28> ROS Other: All systems not noted in ROS Statement are negative. <Rey Pulliam - Last Filed: 02/21/21 00:04> ROS Statement: Those systems with pertinent positive or pertinent negative responses have been documented in the HPI. Past Medical History Past Medical History: Cancer, GERD/Reflux Additional Past Medical History / Comment(s): VERTIGO, HX EARLY STAGES CERVICAL CA- WITH FREEZING PROCEDURE DONE IN 1989 History of Any Multi-Drug Resistant Organisms: None Reported Past Surgical History: Appendectomy, Cholecystectomy, Tubal Ligation Additional Past Surgical History / Comment(s): EGD/COLONOSCOPY Past Anesthesia/Blood Transfusion Reactions: No Reported Reaction Additional Past Anesthesia/Blood Transfusion Reaction / Comment(s): VERTIGO Past Psychological History: No Psychological Hx Reported Smoking Status: Current every day smoker Past Alcohol Use History: None Reported Past Drug Use History: None Reported - Past Family History Mother Family Medical History: Cancer Additional Family Medical History / Comment(s): KIDNEY CA Sister(s) Family Medical History: Cancer Additional Family Medical History / Comment(s): OVARIAN CA Brother(s) Family Medical History: Cancer Additional Family Medical History / Comment(s): PROSTATE Father Family Medical History: Coronary Artery Disease (CAD), Myocardial Infarction (DE) Additional Family Medical History / Comment(s): Father had a DE -pt does not recall at what age. He had CABG. Coronary disease runs on pt's father's side of the family. <Jeb Crockett - Last Filed: 02/20/21 22:28> General Exam Limitations: no limitations General appearance: alert, in no apparent distress Head exam: Present: atraumatic, normocephalic, normal inspection Eye exam: Present: normal appearance, PERRL, EOMI. Absent: scleral icterus, conjunctival injection, periorbital swelling Neck exam: Present: normal inspection Respiratory exam: Present: normal lung sounds bilaterally. Absent: respiratory distress, wheezes, rales, rhonchi, stridor Cardiovascular Exam: Present: regular rate, normal rhythm, normal heart sounds. Absent: systolic murmur, diastolic murmur, rubs, gallop, clicks Extremities exam: Present: other (2+ pulses in right upper extremity, 5 out of 5 neurophysiologist strength.) Right Shoulder Exam: Present: tenderness (Over the anterior aspect no posterior tenderness). Absent: full ROM (Secondary to pain), swelling, abrasion, laceration, ecchymosis, deformity Neurological exam: Present: alert, oriented X3 Psychiatric exam: Present: normal affect, normal mood Skin exam: Present: warm, dry, intact, normal color. Absent: rash <Jeb Crockett - Last Filed: 02/20/21 22:28> Course Vital Signs 02/20/21 02/20/21 02/20/21 20:55 22:32 23:07 Temperature 71 F L Pulse Rate 71 82 58 L Respiratory 18 16 16 Rate Blood Pressure 137/83 163/82 129/61 O2 Sat by Pulse 99 98 97 Oximetry Medical Decision Making - Radiology Data Radiology results: report reviewed, image reviewed <Jeb Crockett - Last Filed: 02/20/21 22:28> - Medical Decision Making 55-year-old female complaining of right shoulder pain after tripping over her dog and falling. X-ray of the right shoulder, 4 mg morphine ordered. Patient complaining of reaction to the morphine, 50 mg of Benadryl given. Reagan NIEVES was consulted about x-ray findings and wanted a CT of the right shoulder. Case discussed with Dr. Pulliam. (Jeb Crockett) - Radiology Data X-ray of the right shoulder: Comminuted impacted humeral neck fracture. Fracture line extends into the articular surface of the humeral head. (Jeb Crockett) Disposition <Jeb Crockett - Last Filed: 02/20/21 22:28> Is patient prescribed a controlled substance at d/c from ED?: No <Rey Pulliam - Last Filed: 02/21/21 00:04> Clinical Impression: Right humeral fracture Disposition: HOME SELF-CARE Condition: Good Instructions (If sedation given, give patient instructions): Proximal Humerus Fracture (ED) Referrals: Brijesh Macias DO [Doctor of Osteopathic Medicine] - 1-2 days
--- NOTE | 2021-02-20 23:50 | CT ---
EXAMINATION TYPE: CT shoulder RT wo con DATE OF EXAM: 02/20/2021 COMPARISON: None HISTORY: FX PAIN CT DLP: 469 mGycm Automated exposure control for dose reduction was used. Images were obtained from the top of the shoulder to the shaft of the humerus without contrast. There is impacted comminuted humeral neck fracture. There is no dislocation. Fracture line extends th rough the humeral head to the articular surface. The scapula is intact. The AC joint is intact. Tovar um is intact. The clavicle appears intact. Right upper ribs appear intact. IMPRESSION: Comminuted impacted intra-articular fracture of the humeral neck. No dislocation.
[2021-02-21] MEDS ORDERED: ACET/COD 300 MG/30 MG STARTER PACK 6 TAB BTL PO STA (00:04)
[2021-02-21 00:43] VITALS: BP 130/72; PULSE 62
== END 2021-02-21 00:40 | disposition home or self-care (01) ==
LOC: EC 20:53
DX: S42.291A Other displaced fracture of upper end of right humerus, initial encounter for closed fracture (principal); K21.9 Gastro-esophageal reflux disease without esophagitis; F17.200 Nicotine dependence, unspecified, uncomplicated; Z85.41 Personal history of malignant neoplasm of cervix uteri; W01.0XXA Fall on same level from slipping, tripping and stumbling without subsequent striking against object, initial encounter
CPT/HCPCS: 73030; 73200; 99284; 96372 ×2; J2270; J1200

== ENCOUNTER 2021-02-24 20:29 | Emergency (ER) | payer OTHER ==
[2021-02-24 20:37] VITALS: BP 141/71; PULSE 78; RESP 20; TEMP 99.4
--- NOTE | 2021-02-24 21:50 | ED ---
Upper Extremity HPI - General Chief Complaint: Extremity Injury, Upper Stated Complaint: Revisit,Arm injury Time Seen by Provider: 02/24/21 21:10 Source: patient Mode of arrival: ambulatory Limitations: no limitations - History of Present Illness Initial Comments: This patient is a 55-year-old woman who presents to have reevaluation of her right arm after noting that there appeared to be bruising. Patient had a fall on Monday, was seen here and diagnosed with fracture of the humerus at the humeral neck. The patient has been wearing a sling since that time. She has follow-up with the orthopedic doctors this week. Patient states that when she was showering family member noticed she had some bruising on the inner aspect of the right arm. Patient is not having any new symptoms related to the fracture. She states that she has not had any fevers or chills, chest pain, shortness of breath palpitations or other symptoms. Patient denies weakness or numbness of the hand. MD Complaint: Injury to:: right, arm Onset/Timin -: days(s) Handedness: right Place: home Improves With: none Worsens With: none Context: fall Associated Symptoms: heard/felt popping sensat Treatments Prior to Arrival: splint - Related Data Home Medications Medication Instructions Recorded Confirmed Acetaminophen Tab [Tylenol] 1,000 mg PO Q6HR PRN 09/18/16 08/31/19 Allergies Allergy/AdvReac Type Severity Reaction Status Date / Time morphine Allergy Unknown Verified 02/24/21 20:34 Review of Systems ROS Statement: Those systems with pertinent positive or pertinent negative responses have been documented in the HPI. ROS Other: All systems not noted in ROS Statement are negative. Constitutional: Denies: fever, chills Musculoskeletal: Reports: arthralgia Neurological: Denies: weakness, numbness, paresthesias Hematological/Lymphatic: Reports: as per HPI Past Medical History Past Medical History: Cancer, GERD/Reflux Additional Past Medical History / Comment(s): VERTIGO, HX EARLY STAGES CERVICAL CA- WITH FREEZING PROCEDURE DONE IN 1989 History of Any Multi-Drug Resistant Organisms: None Reported Past Surgical History: Appendectomy, Cholecystectomy, Tubal Ligation Additional Past Surgical History / Comment(s): EGD/COLONOSCOPY Past Anesthesia/Blood Transfusion Reactions: No Reported Reaction Additional Past Anesthesia/Blood Transfusion Reaction / Comment(s): VERTIGO Past Psychological History: No Psychological Hx Reported Smoking Status: Current every day smoker Past Alcohol Use History: None Reported Past Drug Use History: None Reported - Past Family History Mother Family Medical History: Cancer Additional Family Medical History / Comment(s): KIDNEY CA Sister(s) Family Medical History: Cancer Additional Family Medical History / Comment(s): OVARIAN CA Brother(s) Family Medical History: Cancer Additional Family Medical History / Comment(s): PROSTATE Father Family Medical History: Coronary Artery Disease (CAD), Myocardial Infarction (NH) Additional Family Medical History / Comment(s): Father had a NH -pt does not recall at what age. He had CABG. Coronary disease runs on pt's father's side of the family. General Exam Limitations: no limitations General appearance: alert, in no apparent distress Right Shoulder Exam: Present: normal inspection, swelling. Absent: full ROM, abrasion Upper Arm exam: Present: swelling, ecchymosis. Absent: full ROM, tenderness, abrasion, laceration, crepidus, dislocation, erythema Elbow exam: Present: normal inspection, full ROM. Absent: tenderness, swelling, abrasion, laceration, ecchymosis, deformity, crepitus, dislocation, erythema Forearm Wrist exam: Present: normal inspection, full ROM. Absent: tenderness, swelling, abrasion, laceration, ecchymosis, deformity, crepitus, dislocation Hand Wrist exam: Present: normal inspection, full ROM. Absent: tenderness, swelling, abrasion, laceration, ecchymosis Neuro motor exam: Present: wrist extension intact, thumb opposition intact, thumb IP flexion intact, thumb adduction intact, fingers 2-5 abduction intact Neurosensory exam: Present: 2-point discrimination, radial nerve intact, ulnar nerve intact, median nerve intact Vascular: Present: normal capillary refill. Absent: pulse deficit radial art, pulse deficit ulnar art, pulse deficit brachial art Skin exam: Present: warm, dry, intact Course Vital Signs 02/24/21 20:34 Temperature 99.4 F Pulse Rate 78 Respiratory 20 Rate Blood Pressure 141/71 O2 Sat by Pulse 97 Oximetry Disposition Clinical Impression: Hematoma Disposition: HOME SELF-CARE Condition: Good Instructions (If sedation given, give patient instructions): Arm Fracture in Adults (ED), Hematoma (ED) Is patient prescribed a controlled substance at d/c from ED?: No Referrals: Boyd Chávez MD [Primary Care Provider] - 1-2 days Chapin Galo DO [Doctor of Osteopathic Medicine] - 1-2 days
== END 2021-02-24 22:06 | disposition home or self-care (01) ==
LOC: EC 20:29
DX: S40.021A Contusion of right upper arm, initial encounter (principal); K21.9 Gastro-esophageal reflux disease without esophagitis; F17.200 Nicotine dependence, unspecified, uncomplicated; Z79.899 Other long term (current) drug therapy; Z88.5 Allergy status to narcotic agent; Z85.41 Personal history of malignant neoplasm of cervix uteri; Z82.49 Family history of ischemic heart disease and other diseases of the circulatory system; W01.0XXA Fall on same level from slipping, tripping and stumbling without subsequent striking against object, initial encounter
CPT/HCPCS: 99283

== ENCOUNTER → 2021-06-09 | Outpatient (CLI) | payer OTHER ==
--- NOTE | 2021-06-11 09:57 | MM ---
Reason for exam: screening (asymptomatic). History: Patient is postmenopausal. Took hormonal contraceptives for 1 year. Physical Findings: A clinical breast exam by your physician is recommended on an annual basis and results should be correlated with mammographic findings. MG Screening Mammo w CAD Bilateral CC and MLO view(s) were taken. No prior studies available for comparison. The breast tissue is heterogeneously dense. This may lower the sensitivity of mammography. There is no discrete abnormality. ASSESSMENT: Negative, BI-RAD 1 RECOMMENDATION: Routine screening mammogram of both breasts in 1 year.
== END | disposition home or self-care (01) ==
LOC: RADMAMWWP 13:08
PROVIDERS: ATTEND Family Medicine
DX: Z12.31 Encounter for screening mammogram for malignant neoplasm of breast (principal); Z78.0 Asymptomatic menopausal state
CPT/HCPCS: 77067